=== PATIENT | male | born 1990 | race Caucasian/White ===

== ENCOUNTER 2020-09-16 12:33 | Emergency (ER) | payer OTHER ==
[~2020-09-16] VITALS: Ht 182.9 cm; Wt 81.6 kg
[2020-09-16 12:38] VITALS: BP 124/65
[2020-09-16] MEDS ORDERED: BACITRACIN OINT 500 UNITS/GM PKT TP ONE (12:55)
[2020-09-16] MEDS ORDERED: diazePAM 5 MG TAB PO ONE (12:55)
[2020-09-16] MEDS ORDERED: KETOROLAC 30 MG/ML VIAL IM ONE (12:55)
[2020-09-16] MEDS ORDERED: NAPR-54 PO (13:59)
[2020-09-16 14:15] VITALS: BP 124/65
== END 2020-09-16 14:14 | disposition home or self-care (01) ==
LOC: MED 12:33
DX: S30.0XXA Contusion of lower back and pelvis, initial encounter (principal); W18.30XA Fall on same level, unspecified, initial encounter; Y93.89 Activity, other specified; Y92.89 Other specified places as the place of occurrence of the external cause; Y99.0 Civilian activity done for income or pay
CPT/HCPCS: 72100; 96372; 99283; J1885